=== PATIENT | female | born 1985 | race Caucasian/White ===

== ENCOUNTER 2023-12-11 20:33 | Emergency (ER) | payer OTHER ==
[~2023-12-11] VITALS: Ht 149.9 cm; Wt 59.0 kg
[2023-12-11 22:11] LABS: INFLUENZAE A&B ANTIGEN (RAPID) NEGATIVE (NEGATIVE); STREPTOCOCCUS GRP A ANTIGEN NEGATIVE (NEGATIVE)
[2023-12-11 22:27] VITALS: PULSE 82; RESP 20; TEMP 98.8; O2SAT 100
[2023-12-11] MEDS ORDERED: PREDNISONE20 MG PO (22:29)
[2023-12-11] MEDS ORDERED: VENTOLIN HFA18 GM INH (22:29)
[2023-12-11] MEDS ORDERED: PAXLOVID 300-11 EAC1 PO (22:29)
== END 2023-12-11 22:40 | disposition home or self-care (01) ==
LOC: ER 20:40
DX: R05.9 Cough, unspecified (principal); U07.1 COVID-19; R09.81 Nasal congestion; R53.81 Other malaise
CPT/HCPCS: 83518; 87070; 87400; 99282; U0002